=== PATIENT | female | born 1985 | race Caucasian/White ===

== ENCOUNTER 2017-01-16 20:15 | Emergency (ER) | payer OTHER | END 2017-01-16 21:15 | disposition home or self-care (01) | LOC: ED 20:15 | DX: J06.9 Acute upper respiratory infection, unspecified (principal); K76.0 Fatty (change of) liver, not elsewhere classified ==

== ENCOUNTER 2017-01-29 19:42 | Emergency (ER) | payer OTHER ==
[2017-01-29] MEDS ORDERED: DIPHTH,PERTUSS(ACELL),TET VAC 0.5 ML VIAL IM V ONE (20:18)
== END 2017-01-29 20:49 | disposition home or self-care (01) ==
LOC: ED 19:42
DX: S61.011A Laceration without foreign body of right thumb without damage to nail, initial encounter (principal); Z23 Encounter for immunization; W45.8XXA Other foreign body or object entering through skin, initial encounter; Y92.009 Unspecified place in unspecified non-institutional (private) residence as the place of occurrence of the external cause